=== PATIENT | male | born 1990 | race Asian ===

== ENCOUNTER 2018-06-23 14:36 | Emergency (ER) | payer MEDICAID ==
[~2018-06-23] VITALS: Ht 172.7 cm; Wt 63.5 kg
[2018-06-23 14:50] VITALS: BP 111/72
[2018-06-23] MEDS ORDERED: HYDROXYZINE HCL50 M1 PO (14:55)
[2018-06-23] MEDS ORDERED: HYDROCORTISONE-30 GM TOPIC (15:32)
[2018-06-23] MEDS ORDERED: BACITRACIN-P28.35 GM TP (15:32)
[2018-06-23] MEDS ORDERED: TYLENOL EXTRA500 MG ORAL (15:32)
[2018-06-23] MEDS ORDERED: ZOFRAN4 M3 ORAL (15:32)
--- NOTE | 2018-06-23 15:32 | Emergency Room Report ---
History of Present Illness General Chief Complaint: Vomiting Source: Patient Present Illness HPI 28-year-old male patient presents the ER complaining of vomiting for the past few hours. Reports vomiting began at 5 AM, states that he is vomiting up food and bile. Denies hematemesis or coffee-ground emesis. Reports that he has contacts at home with similar symptoms, states that they all drink some eggnog. Denies diarrhea. Denies fever. Reports mild epigastric pain that he believes is "because of the vomiting". Denies history of GI problems. Denies drinking alcohol, drug use, or marijuana use. Denies fever, chest pain, shortness of breath. Denies recent antibiotic use. Also reports concern for possible infection from tattoo that he received 4 days ago. States that he cannot see his tattoo but thinks it may be infected. Allergies: Coded Allergies: No Known Allergies (Unverified , 06/23/18) Patient History Past Medical History: see triage record Reviewed Nursing Documentation: PMH: Agreed; PSxH: Agreed Nursing Documentation-PMH Past Medical History: No History, Except For History Of Psychiatric Problem: Yes - anxiety Review of Systems All Other Systems: negative except mentioned in HPI Physical Exam Vital Signs Date Time Temp Pulse Resp B/P (MAP) Pulse Ox O2 Delivery O2 Flow Rate FiO2 06/23/18 14:50 102 16 Room Air 06/23/18 14:50 98.2 111/72 98 Sp02 EP Interpretation: reviewed, normal General Appearance: well appearing, no apparent distress, alert, GCS 15, non- toxic Head: normocephalic, atraumatic Eyes: bilateral eye normal inspection, bilateral eye PERRL ENT: hearing grossly normal, normal pharynx, no angioedema, normal voice, uvula midline, moist mucus membranes Neck: full range of motion Respiratory: lungs clear, normal breath sounds, no rhonchi, no respiratory distress, no accessory muscle use, no wheezing, speaking full sentences Cardiovascular #1: regular rate, rhythm, no edema Gastrointestinal: normal bowel sounds, non tender, soft, no mass, non-distended , no guarding, no pulsatile mass, no rebound, other - Negative Rovsing, negative Sanford Musculoskeletal: back normal, digits/nails normal, gait/station normal, normal range of motion, non-tender Neurologic: alert, oriented x3, responsive, motor strength/tone normal, sensory intact Psychiatric: mood/affect normal Skin: other - Tattoo on posterior neck, mild intermittent erythremia surrounding borders of tattoo, no edema, likely localized inflammation Medical Decision Making PA Attestation Dr. Burk is my supervising Physician whom patient management has been discussed with. Diagnostic Impression: Primary Impression: Vomiting Additional Impression: Tattoo reaction ER Course Pt. presents to the ED c/o vomiting. Ddx considered but are not limited to viral syndrome, gastritis, enteritis, food poisoning, GERD, reflux. Vital signs: are WNL, pt. is afebrile at discharge. ordered zofran. ED COURSE: Physical exam benign, no abdominal TTP, negative Sanford sign, negative Rovsing, negative obturator, low suspicion for appendicitis or cholecystitis, does not require labs or imaging at this time. Patient afebrile, not jaundice, no abdominal TTP, low suspicion for cholecystitis.. No fever, no blood in stool, no recent travel or hospitalizations, does not require abx treatment at this time. No signs of dehydration, moist mucus membranes, cap refill <2seconds, normal skin turgor. Patient able to tolerate PO fluids while in the ER. Patient history consistent with likely food poisoning, will provide Zofran in the ER. . Patient instructed on BRAT diet. Patient instructed to remain hydrated, drink plenty of fluids. Patient questions asked and answered. Patient states understanding and agreement to treatment plan. ER precautions given, return to ER for new or worsening of symptoms. Tattoo shows no signs of deep infection, likely localized inflammation, mild erythema, low suspicion for cellulitis, do not believe patient requires oral antibiotics at this time. Will provide patient with topical abx and hydrocortisone for symptom relief. Advised to follow-up with Derm or primary care provider for further evaluation and treatment. Keep clean and dry. ER precautions given. Wound check in 2-3 days. DISCHARGE: Rx provided for Tylenol for pain symptoms Rx provided for zofran At this time pt. is stable for d/c to home. Patient is resting comfortably, laughing, in no acute distress, nontoxic appearing. Will provide printed patient care instructions, and any necessary prescriptions. Care plan and follow up instructions have been discussed with the patient prior to discharge. Patient instructed to followup with PCP in 3-5 days. Patient reports understanding and agreement to treatment plan. Patient questions asked and answered. ER precautions given; patient instructed to return to ER for new or worsening of symptoms including but not limited to fever, intractable vomiting, severe abdominal pain, blood in stool. - Please note that this Emergency Department Report was dictated using [employer] sorter technology software, occasionally this can lead to erroneous entry secondary to interpretation by the dictation equipment. Last Vital Signs Date Time Temp Pulse Resp B/P (MAP) Pulse Ox O2 Delivery O2 Flow Rate FiO2 06/23/18 14:50 98.2 102 16 111/72 98 Room Air Status: improved Disposition: HOME, SELF-CARE Condition: Stable Scripts Hydrocortisone/Aloe Vera 1%* (HYDROCORTISONE-ALOE 1% CREAM*) Y Cr 1 APPLIC TOPIC Q6H PRN for Itching, #30 GM Prov: Jonny Brady 06/23/18 Ondansetron* (ZOFRAN*) 4 Mg Tablet 4 MG ORAL Q6H PRN for Nausea & Vomiting, #8 TAB Prov: Jonny Brady 06/23/18 Acetaminophen* (TYLENOL EXTRA STRENGTH*) 500 Mg Tablet 500 MG ORAL Q8H PRN for Prn Headache/Temp > 101, #30 TAB 0 Refills Prov: Jonny Brady 06/23/18 Bacitracin/Polymyxin B Sulfate (BACITRACIN-POLYMYXIN OINTMENT) 28.35 Gm Oint...g. 1 APPLIC TP BID, #28 GM Prov: Jonny Brady 06/23/18 Referrals: NOT CHOSEN IPA/,REFERRING (PCP) Patient Instructions: Food Poisoning, [id number], Nausea and Vomiting, Adult Additional Instructions: Followup with primary care provider in 3 -5 days. Discussed referral to Derm. Avoid spicy foods, avoid dairy foods. BRAT diet: bananas, rice, apple sauce, toast. Consider Tylenol for pain symptoms. Keep tattoo clean and dry. Take medications as directed. Patient questions asked and answered. ER precautions given, patient instructed to return to ER immediately for any new or worsening of symptoms. [facility] Jonny Brady Jun 23, 2018 15:32
[2018-06-23 17:00] VITALS: BP 108/65
== END 2018-06-23 17:00 | disposition home or self-care (01) ==
LOC: EMR 15:14
DX: R11.0 Nausea (principal); F41.9 Anxiety disorder, unspecified; T78.49XA Other allergy, initial encounter; X58.XXXA Exposure to other specified factors, initial encounter
CPT/HCPCS: 99283